=== PATIENT | male | born 1960 | race Caucasian/White ===

== ENCOUNTER 2019-12-05 07:36 | Emergency (ER) | payer OTHER ==
[2019-12-05] MEDS ORDERED: PREDNISONE 20 MG TABLET PO ONE (09:04)
[2019-12-05] MEDS ORDERED: CEPHALEXIN 500 MG CAPSULE PO ONE (09:05)
--- NOTE | 2019-12-05 09:11 | ER Document Report ---
HPI - HPI Patient complains to provider of: Left ankle pain Time Seen by Provider: 12/05/19 08:50 Onset/Duration: Persistent Quality of pain: Achy Pain Level: 4 Context: Patient presents complaining of left ankle pain for the past 3 days. Patient states that 3 days ago he did step on some hot coals while barefoot and had pain to the plantar surface of the foot. Patient states that he was seen and placed on an antibiotic by the urgent care yesterday. Patient states that the pain to his ankle is worse than the pain to the site of the burn. Patient states he does have a history of gout and typically gets gout in the ankle although this pain feels somewhat different than his usual gout flareups. Patient denies any fever. Associated Symptoms: Other - Left ankle pain. denies: Fever Exacerbated by: Standing, Movement, Walking Relieved by: Denies Similar symptoms previously: Yes Recently seen / treated by doctor: Yes - ROS ROS below otherwise negative: Yes Systems Reviewed and Negative: Yes All other systems reviewed and negative - CONSTITUTIONAL Constitutional: DENIES: Fever, Chills - MUSCULOSKELETAL Musculoskeletal: REPORTS: Extremity pain - left ankle, Swelling - DERM Skin Color: Erythema Skin Problems: Burn Past Medical History - General Information source: Patient - Social History Smoking Status: Never Smoker Frequency of alcohol use: Occasional Drug Abuse: None 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 Family History: Reviewed & Not Pertinent Patient has homicidal ideation: No - Past Medical History Cardiac Medical History: Reports: Hx Hypercholesterolemia, Hx Hypertension Endocrine Medical History: Reports: Hx Diabetes Mellitus Type 2 Musculoskeletal Medical History: Reports Hx Gout Past Surgical History: Reports: Hx Orthopedic Surgery - Immunizations Hx Diphtheria, Pertussis, Tetanus Vaccination: Yes Vertical Provider Document - CONSTITUTIONAL Agree With Documented VS: Yes Exam Limitations: No Limitations General Appearance: WD/WN, No Apparent Distress - HEENT HEENT: Atraumatic, Normocephalic - NECK Neck: Normal Inspection - RESPIRATORY Respiratory: Breath Sounds Normal, No Respiratory Distress - CARDIOVASCULAR Cardiovascular: Regular Rate, Regular Rhythm, No Murmur Pulses: Normal: Dorsalis pedis - BACK Back: Normal Inspection - MUSCULOSKELETAL/EXTREMETIES Musculoskeletal/Extremeties: MAEW, Tender - Tenderness to medial lateral malleolar area of the left ankle with 1+ edema, mild calor. - NEURO Level of Consciousness: Awake, Alert, Appropriate Motor/Sensory: No Motor Deficit, No Sensory Deficit - DERM Integumentary: Warm, Dry Notes: Blister to plantar surface under the left fifth distal metatarsal, mild erythema to left foot Course - Re-evaluation Re-evalutation: 12/05/19 09:06 Patient presents with tenderness primarily to the left ankle although does have some mild tenderness around the burn to the plantar surface of the left foot. Patient with mild erythema to the foot worrisome for possible early cellulitis. Patient was recently placed on Bactrim. Will add cephalexin for additional coverage. Patient ankle tenderness is suspicious for gout flareup as this is typically where he has gout flareups in the past. Patient also states due to the burn he has been altering his gait, crutches will be provided to assist with this problem. Discussed worsening signs or symptoms of patient should return immediately for. Patient verbalized understanding and is agreeable with discharge plan of care. - Vital Signs Vital signs: Temp Pulse Resp BP Pulse Ox 98.7 F 79 16 153/74 H 98 12/05/19 07:40 12/05/19 07:40 12/05/19 07:40 12/05/19 07:40 12/05/19 07:40 Discharge - Discharge Clinical Impression: Cellulitis of foot Left foot burn Qualifiers: Encounter type: initial encounter Burn degree: partial thickness (2nd degree) Qualified Code(s): T25.222A - Burn of second degree of left foot, initial encounter Gout flare Qualifiers: Gout site: ankle Gout etiology: unspecified cause Laterality: left Qualified Code(s): M10.9 - Gout, unspecified Left ankle pain Qualifiers: Chronicity: acute Qualified Code(s): M25.572 - Pain in left ankle and joints of left foot Condition: Stable Disposition: HOME, SELF-CARE Instructions: [facility] ([facility]), Cellulitis ([facility]), Cephalexin ([facility]), Use of Crutches ([facility]), Oral Narcotic Medication ([facility]) Additional Instructions: Return immediately for any new or worsening symptoms Followup with your primary care provider, call tomorrow to make a followup appointment Weightbearing as tolerated Monitor appearance of the burn daily for any worsening signs of infection. Return as needed. Prescriptions: Prednisone [Deltasone 20 mg Tablet] 2 tab PO DAILY 4 Days #8 tablet Cephalexin Monohydrate [Keflex 500 mg Capsule] 500 mg PO Q6H 7 Days #28 capsule Hydrocodone/Acetaminophen [[place] 5-325 mg Tablet] 1 tab PO Q6 PRN #15 tablet PRN Reason: Referrals: [facility] [Provider Group] - Follow up as needed
[2019-12-05 09:25] VITALS: BP 138/88
== END 2019-12-05 09:27 | disposition home or self-care (01) ==
LOC: ER 07:36
DX: T25.222A Burn of second degree of left foot, initial encounter (principal); L03.116 Cellulitis of left lower limb; M25.572 Pain in left ankle and joints of left foot; M10.9 Gout, unspecified; X19.XXXA Contact with other heat and hot substances, initial encounter; E78.00 Pure hypercholesterolemia, unspecified; I10 Essential (primary) hypertension; E11.9 Type 2 diabetes mellitus without complications
CPT/HCPCS: 99283; J7512